=== PATIENT | female | born 1955 | race African-American/Black ===

== ENCOUNTER 2017-06-05 08:03 | Outpatient (CLI) | payer OTHER | END 2017-06-05 21:03 | disposition home or self-care (01) | LOC: SMA 08:03 | PROVIDERS: ATTEND Family Medicine | DX: Z12.31 Encounter for screening mammogram for malignant neoplasm of breast (principal) | CPT/HCPCS: G0202 ==

== ENCOUNTER 2018-07-29 08:03 | Outpatient (CLI) | payer OTHER | END 2018-07-29 20:25 | disposition home or self-care (01) | LOC: SMA 08:03 | PROVIDERS: ATTEND Family Medicine | DX: Z12.31 Encounter for screening mammogram for malignant neoplasm of breast (principal) | CPT/HCPCS: 77067 ==

== ENCOUNTER → 2019-07-30 | Outpatient (CLI) | payer OTHER | END | disposition home or self-care (01) | LOC: SMA 09:28 | PROVIDERS: ATTEND Family Medicine | DX: Z12.31 Encounter for screening mammogram for malignant neoplasm of breast (principal) | CPT/HCPCS: 77067 ==

== ENCOUNTER 2019-08-05 10:04 | Outpatient (CLI) | payer OTHER | END 2019-08-05 20:00 | disposition home or self-care (01) | LOC: SMA 10:04 | PROVIDERS: ATTEND Family Medicine | DX: R92.8 Other abnormal and inconclusive findings on diagnostic imaging of breast (principal) | CPT/HCPCS: 77065 ==

== ENCOUNTER 2020-08-09 09:37 | Outpatient (CLI) | payer OTHER | END 2020-08-09 20:18 | disposition home or self-care (01) | LOC: SMA 09:37 | PROVIDERS: ATTEND Family Medicine | DX: Z12.31 Encounter for screening mammogram for malignant neoplasm of breast (principal); N64.89 Other specified disorders of breast | CPT/HCPCS: 77067 ==